=== PATIENT | male | born 1975 | race African-American/Black ===

== ENCOUNTER 2016-10-02 08:56 | Emergency (ER) | payer OTHER ==
[~2016-10-02] VITALS: Ht 175.3 cm; Wt 90.7 kg
[2016-10-02 08:56] VITALS: BP 147/89
== END 2016-10-02 09:18 | disposition left against medical advice (07) ==
LOC: ER 08:58
DX: Z53.21 Procedure and treatment not carried out due to patient leaving prior to being seen by health care provider (principal)
CPT/HCPCS: A4606; Z7610